=== PATIENT | female | born 1990 | race Caucasian/White ===

== ENCOUNTER 2017-12-22 00:19 | Emergency (ER) | payer MEDICAID ==
[~2017-12-22] VITALS: Ht 172.7 cm; Wt 78.6 kg
[~2017-12-22 00:19] MED LIST: HYDR-569 PO
[2017-12-22 00:58] VITALS: BP 120/72
[2017-12-22] MEDS ORDERED: SULF1TAB49 PO (02:42)
== END 2017-12-23 01:30 | disposition left against medical advice (07) ==
LOC: ER 00:20
DX: M79.641 Pain in right hand (principal); Z53.21 Procedure and treatment not carried out due to patient leaving prior to being seen by health care provider

== ENCOUNTER 2018-04-04 02:26 | Emergency (ER) | payer MEDICAID ==
[~2018-04-04] VITALS: Ht 172.7 cm; Wt 77.3 kg
[~2018-04-04 02:26] MED LIST changes: +HYDR-4383 PO; -HYDR-569 PO
[2018-04-04 03:13] VITALS: BP 149/86
[2018-04-04] MEDS ORDERED: NAPR-56 PO (03:36)
[2018-04-04] MEDS ORDERED: CYCL-1 PO (04:05)
[2018-04-04] MEDS ORDERED: cyclobenzaprine 10mg tablet PO ONE (04:10)
[2018-04-04] MEDS ORDERED: naproxen 500mg tablet PO ONE (04:10)
== END 2018-04-04 04:17 | disposition home or self-care (01) ==
LOC: ER 02:26
DX: S20.211A Contusion of right front wall of thorax, initial encounter (principal); G89.29 Other chronic pain; Z59.0 Homelessness; Z56.0 Unemployment, unspecified; Z79.899 Other long term (current) drug therapy; W18.39XA Other fall on same level, initial encounter; Y93.01 Activity, walking, marching and hiking; Y92.89 Other specified places as the place of occurrence of the external cause; Y99.8 Other external cause status
CPT/HCPCS: 71046; 99283

== ENCOUNTER 2018-09-05 20:38 | Emergency (ER) | payer MEDICAID ==
[~2018-09-05] VITALS: Ht 172.7 cm; Wt 63.0 kg
[~2018-09-05 20:38] MED LIST changes: +CYCL-1 PO
[2018-09-05 20:39] VITALS: BP 123/74
[2018-09-05] MEDS ORDERED: LIDOcaine 1% w/epiNEPHrine 1:200,000 30ml vial IM ONE (21:55)
[2018-09-05] MEDS ORDERED: TETanus/Pertussis (Acell)/Diphther VAC/PF (Tdap-Adult) 0.5ml syringe IM ONE (21:55)
[2018-09-05] MEDS ORDERED: CEPH-572 PO (22:15)
[2018-09-05] MEDS ORDERED: SULF1TAB49 PO (22:15)
== END 2018-09-05 22:43 | disposition home or self-care (01) ==
LOC: ER 20:39
DX: O26.899 Other specified pregnancy related conditions, unspecified trimester (principal); L02.413 Cutaneous abscess of right upper limb; L03.113 Cellulitis of right upper limb; G89.29 Other chronic pain; Z86.14 Personal history of Methicillin resistant Staphylococcus aureus infection; Z56.0 Unemployment, unspecified; Z59.0 Homelessness; Z79.899 Other long term (current) drug therapy; Z3A.00 Weeks of gestation of pregnancy not specified
CPT/HCPCS: 10060; 87070; 87075; 87102; 87186; 90471; 90715; 99283; J3490; 87077